=== PATIENT | female | born 1990 | race Caucasian/White ===

== ENCOUNTER 2018-01-13 17:22 | Emergency (ER) | payer MEDICAID ==
[2018-01-13] MEDS: LORAZEPAM 2 MG INJ IM (19:06)
[2018-01-13 19:57] LABS: URINE BLOOD (Dip) POC Trace-intact (NEGATIVE); URINE GLUCOSE (Dip) POC Negative (NEGATIVE); URINE KETONES (Dip) POC Negative (NEGATIVE); URINE LEUKOCYTE EST (Dip) POC Negative (NEGATIVE); URINE NITRITE (Dip) POC Negative (NEGATIVE); URINE TOTAL PROTEIN POC Negative (NEGATIVE)
[2018-01-13 19:57] LABS: URINE PH (Dip) POC 5.5 (5.0-8.5)
== END 2018-01-13 20:45 | disposition home or self-care (01) ==
LOC: FTE 17:22
DX: F41.9 Anxiety disorder, unspecified (principal)
CPT/HCPCS: 81003; 96372; 99284-25